=== PATIENT | female | born 1960 | race Caucasian/White ===

== ENCOUNTER 2018-10-11 13:31 | Emergency (ER) | payer BC ==
[2018-10-11 13:40] VITALS: RESP 16
--- NOTE | 2018-10-11 14:12 | ED PDOC ---
Lower Extremity Pain/Injury Time Seen by Provider: 10/11/18 13:54 Chief Complaint (Nursing): Back Pain Chief Complaint (Provider): Knee Pain History Per: Patient History/Exam Limitations: no limitations Onset/Duration Of Symptoms: Days Current Symptoms Are (Timing): Still Present Additional Complaint(s): Patient is a 57 y/o female with no significant PMHx who presents to the ED for evaluation of worsening bilateral knee pain ongoing for the past couple of weeks. Patient also complains of neck, shoulder, and back pain. Patient states she has been taking Naproxen with minimal relief. PCP: Dr. Arnaldo West Past Medical History Reviewed: Historical Data, Nursing Documentation, Vital Signs Vital Signs: Last Vital Signs Temp 97.0 F L 10/11/18 13:37 Pulse 65 10/11/18 13:37 Resp 16 10/11/18 13:37 BP 120/67 10/11/18 13:37 Pulse Ox 98 10/11/18 13:37 - Medical History PMH: No Chronic Diseases - Surgical History Surgical History: Cholecystectomy - Family History Family History: States: Unknown Family Hx - Home Medications Home Medications: Ambulatory Orders Medication Instructions Recorded Acetaminophen/Butalbital/Caf 1 tab PO Q6H #20 tab 09/04/14 [Fioricet 325 mg-50 mg-40 mg] Famotidine [Pepcid] 20 mg PO BID #28 tab 09/04/14 Oxycodone HCl/Acetaminophen 1 tab PO Q4 #10 tab 10/20/14 [Percocet 325 mg-5 mg] Diclofenac Potassium 50 mg PO BID #20 tablet 10/11/18 - Allergies Allergies/Adverse Reactions: Allergies Allergy/AdvReac Type Severity Reaction Status Date / Time No Known Allergies Allergy Verified 10/11/18 13:37 Review of Systems ROS Statement: Except As Marked, All Systems Reviewed And Found Negative Musculoskeletal: Positive for: Neck Pain, Shoulder Pain, Back Pain, Other (Bilateral Knee Pain) Physical Exam - Reviewed Nursing Documentation Reviewed: Yes Vital Signs Reviewed: Yes - Physical Exam Appears: Positive for: Non-toxic, No Acute Distress Head Exam: Positive for: ATRAUMATIC, NORMAL INSPECTION, NORMOCEPHALIC Skin: Positive for: Normal Color, Warm, Dry Eye Exam: Positive for: EOMI, Normal appearance, PERRL Neck: Positive for: Normal, Supple, Decreased ROM Cardiovascular/Chest: Positive for: Regular Rate, Rhythm. Negative for: Murmur Respiratory: Positive for: Normal Breath Sounds. Negative for: Respiratory Distress Back: Positive for: Normal Inspection Extremity: Positive for: Normal ROM, Other (Left knee has mild crepitus, nonaudible; Right knee has no crepitus). Negative for: Pedal Edema, Deformity Neurologic/Psych: Positive for: Alert, Oriented. Negative for: Motor/Sensory Deficits - ECG O2 Sat by Pulse Oximetry: 98 (RA) Pulse Ox Interpretation: Normal Medical Decision Making Medical Decision Making: Time: 1410 Impression: Bilateral Morales's Cyst Plan: - US Extremity Non Vascular COM Time: 1700 FINDINGS: No evidence of cyst or solid mass in either popliteal fossa. Bilateral popliteal veins exhibit vigorous color Doppler blood flow with normal augmentation, phasic blood flow and compressibility. IMPRESSION: Unremarkable lateral popliteal fossa. No sonographic evidence to indicate Morales cyst at either popliteal fossa. The patient is stable for discharge upon re-evaluation The patient had responses to all of her questions prior to discharge Scribe Attestation: Documented by Davion Mascorro, acting as a scribe for DANILO Benitez. Provider Scribe Attestation: All medical record entries made by the Scribe were at my direction and personally dictated by me. I have reviewed the chart and agree that the record accurately reflects my personal performance of the history, physical exam, medical decision making, and the department course for this patient. I have also personally directed, reviewed, and agree with the discharge instructions and disposition. Disposition - Clinical Impression Clinical Impression: Arthralgia, Arthralgia of both knees - Patient ED Disposition Is Patient to be Admitted: No Doctor Will See Patient In The: Office Counseled Patient/Family Regarding: Diagnosis, Need For Followup, Rx Given - Disposition Referrals: [facility] [Outside] [facility] [Outside] Disposition: Routine/Home Disposition Time: 17:38 Condition: STABLE Prescriptions: Diclofenac Potassium 50 mg PO BID #20 tablet Instructions: Chronic Knee Pain, Joint Pain, Knee Pain, Knee Pain (DC) Forms: [employer] ([place]er)
--- NOTE | 2018-10-11 17:03 | US ---
Date of service: 10/11/2018 PROCEDURE: BILATERAL LOWER EXTREMITY SOFT TISSUE ULTRASOUND HISTORY: r/o morales cysts bilateral COMPARISON: None available. TECHNIQUE: Grayscale and duplex doppler technique was applied to the popliteal fossa soft tissues bilaterally. FINDINGS: No evidence of cyst or solid mass in either popliteal fossa. Bilateral popliteal veins exhibit vigorous color Doppler blood flow with normal augmentation, phasic blood flow and compressibility. IMPRESSION: Unremarkable lateral popliteal fossa. No sonographic evidence to indicate Morales cyst at either popliteal fossa.
[2018-10-11 17:50] VITALS: BP 122/67; PULSE 62; TEMP 98.1; O2SAT 100
== END 2018-10-11 17:49 | disposition home or self-care (01) ==
LOC: H.ER 13:31
DX: M25.569 Pain in unspecified knee (principal)

== ENCOUNTER 2019-01-03 12:31 | Emergency (ER) | payer BC ==
[2019-01-03 12:42] VITALS: TEMP 98.2
--- NOTE | 2019-01-03 13:27 | ED PDOC ---
HPI: Back Time Seen by Provider: 01/03/19 12:46 Chief Complaint (Nursing): Lower Extremity Problem/Injury Chief Complaint (Provider): Lower Extremity Problem/Injury History Per: Patient History/Exam Limitations: no limitations Onset/Duration Of Symptoms: Days (x1) Current Symptoms Are (Timing): Still Present Additional Complaint(s): Patient is a 58 y/o female with no significant PMHx who presents to the ED for evaluation of right lower back pain radiating down her right leg since yesterday. Patient states she was walking when she tripped and tried not to fall but fell and landed on her right lower back. Patient reports during the time of onset she felt like her right leg fell asleep, which has now resolved. Patient took Naproxen last night with minimal relief of symptoms, thus, prompting an ED visit. Patient claims the pain is so severe she has been having difficulty sleeping and putting on her shoes. Patient denies urinary symptoms or incontinence, no bowel incontinece, no previous back injuries or problems, heavy lifting, weakness, paresthesias, fevers, or chills. PCP: Dr. Serg Calero Past Medical History Reviewed: Historical Data, Nursing Documentation, Vital Signs Vital Signs: Last Vital Signs Temp 98.2 F 01/03/19 12:38 Pulse 56 L 01/03/19 12:38 Resp 16 01/03/19 12:38 BP 117/61 01/03/19 12:38 Pulse Ox 98 01/03/19 12:38 Primary Care Provider: Serg Calero - Medical History PMH: No Chronic Diseases - Surgical History Surgical History: No Surg Hx - Family History Family History: States: Unknown Family Hx - Home Medications Home Medications: Ambulatory Orders Medication Instructions Recorded Acetaminophen/Butalbital/Caf 1 tab PO Q6H #20 tab 09/04/14 [Fioricet 325 mg-50 mg-40 mg] Famotidine [Pepcid] 20 mg PO BID #28 tab 09/04/14 Oxycodone HCl/Acetaminophen 1 tab PO Q4 #10 tab 10/20/14 [Percocet 325 mg-5 mg] Diclofenac Potassium 50 mg PO BID #20 tablet 10/11/18 Acetaminophen [8 Hour Pain Relief] 650 mg PO Q8 PRN #20 tablet.er 01/03/19 Cyclobenzaprine [Cyclobenzaprine 10 mg PO TID PRN #12 tab 01/03/19 HCl] - Allergies Allergies/Adverse Reactions: Allergies Allergy/AdvReac Type Severity Reaction Status Date / Time No Known Allergies Allergy Verified 01/03/19 12:38 Review of Systems ROS Statement: Except As Marked, All Systems Reviewed And Found Negative Genitourinary Female: Negative for: Dysuria, Frequency, Hematuria Musculoskeletal: Positive for: Back Pain (right lower), Leg Pain (right) Neurological: Negative for: Numbness Physical Exam - Reviewed Nursing Documentation Reviewed: Yes Vital Signs Reviewed: Yes - Physical Exam Comments: GENERAL APPEARANCE: Patient is awake, alert, oriented x 3, in no acute distress. SKIN: Warm, dry; (-) cyanosis. EYES: (-) conjunctival pallor. EOMI. PERRL. ENMT: Mucous membranes moist. NECK: (-) tenderness, (-) stiffness, (-) lymphadenopathy. CHEST AND RESPIRATORY: (-) rales, (-) rhonchi, (-) wheezes; breath sounds equal bilaterally. HEART AND CARDIOVASCULAR: (-) irregularity; (-) murmur, (-) gallop. ABDOMEN AND GI: Soft; (-) tenderness; (-) palpable mass. BACK: (+) right straight leg raising, (+) right lumbar and gluteal muscle tenderness, (-) midline tenderness, (-) direct bony tenderness, (-) pelvis instability, (-) deformity. EXTREMITIES: (-) deformity. Bilateral lower extremity strength: 5/5. Distal pulses good bilaterally. Capillary refill less than 2 seconds. NEURO AND PSYCH: Mental status as above. Intact sensation bilaterally; normal strength in extension of the knees, plantar and dorsiflexion of the toes. DTRs symmetric, normal steady gait - ECG O2 Sat by Pulse Oximetry: 98 (RA) Pulse Ox Interpretation: Normal Medical Decision Making Medical Decision Making: Time: 1256 Impression: Right Lower Lumbar and Right Leg Pain Plan: Lumbar Spine Complete [Rad] Decadron Inj 10 mg IM Flexeril 10 mg PO Toradol 30 mg IM Hip Right [Rad] 14:20 Date of service: 01/03/2019 PROCEDURE: Radiographs of the Lumbar Spine. HISTORY: Fall. COMPARISON: No prior. TECHNIQUE: 5 views obtained. FINDINGS: No acute compression fractures nor retropulsed fragments. BONES: No acute compression fractures no retropulsed however note is made of a pars interarticularis defect at the L5-S1 level felt to be chronic.. Vertebral bodies exhibit normal stature. Vertebral bodies and facets exhibit normal alignment DISC SPACES: Disc space heights are relatively maintained. Small marginal multilevel anterolateral osteophyte formation present with endplate eburnation.. The facets are hypertrophic at the L5-S1 through the L2-L3 levels in decreasing order of severity OTHER FINDINGS: Note made of metallic clips right upper quadrant of the abdomen consistent prior cholecystectomy IMPRESSION: There is a chronic appearing pars interarticularis defect at L5-S1 level. No acute fracture seen. Mild multilevel facet arthropathy small marginal anterolateral osteophyte formation as described. Hip Xray note reviewed by radiology yet - reviewed by me -- no acute fractures/dislocations, moderate DJD 14:55 on re eval pt resting comfortably, reports improvement of pain but not completely gone, pt neurologically intact, steady gait, improved ROM, stable for dc pt now mentions she is not supposed to take Naproxen or Motrin due to gastritis and that she took both yesterday without any relief, will give Tylenol PO Discussed results, diagnosis, treatment, return precautions and f/u with pt who is understanding, in agreement and stable for dc Scribe Attestation: Documented by Davion Mascorro, acting as a scribe Morgan Acosta PA-C. Provider Scribe Attestation: All medical record entries made by the Scribe were at my direction and personally dictated by me. I have reviewed the chart and agree that the record accurately reflects my personal performance of the history, physical exam, medical decision making, and the department course for this patient. I have also personally directed, reviewed, and agree with the discharge instructions and disposition. Disposition - Clinical Impression Clinical Impression: Fall from slip, trip, or stumble, Lumbago with sciatica, right side, Pars defect of lumbar spine - Patient ED Disposition Is Patient to be Admitted: No Counseled Patient/Family Regarding: Studies Performed, Diagnosis, Need For Followup, Rx Given - Disposition Referrals: Serg Calero [Medical Doctor] - Disposition: Routine/Home Disposition Time: 15:00 Condition: IMPROVED Additional Instructions: Thank you for letting us take care of you today. The emergency medical care you received today was directed at your acute symptoms. If you were prescribed any medication, please fill it and take as directed.Do not drink alcohol or drive when taking flexeril. It may take several days for your symptoms to resolve. Return to the Emergency Department if your symptoms worsen, do not improve, or if you have any other problems. Please contact your doctor in 2 days for re-evaluation and follow up / or call one of the physicians/clinics you have been referred to that are listed on the Patient Visit Information form that is included in your discharge packet. Bring any paperwork you were given at discharge with you along with any medications you are taking to your follow up visit. Our treatment cannot replace ongoing medical care by a primary care provider (PCP) outside of the emergency department. Geoff por dejarnos cuidar de ti hoy. La atencin mdica de emergencia que recibi hoy se dirigi a sheryl sntomas agudos. Si le recetaron algn medicamento, llnelo y tmelo segn las indicaciones. No tome alcohol ni maneje cuando tome flexeril. Los sntomas pueden tardar varios suárez en resolverse. Regrese al Departamento de Emergencias si sheryl sntomas empeoran, no mejoran o si tiene otros problemas. Comunquese con barcenas mdico dentro de 2 suárez para jocelyne nueva evaluacin y fahad un seguimiento o llame a annmarie de los mdicos / clnicas a los que rolle sido referido y que figuran en el formulario de Informacin de visita al paciente que se incluye en barcenas paquete de rasheeda. Lleve todos los documentos que recibi al momento del rasheeda junto con los medicamentos que est tomando para barcenas visita de seguimiento. Nuestro tratamiento no puede reemplazar la atencin mdica continua por parte de un proveedor de atencin primaria (PCP) fuera del departamento de emergencias. Prescriptions: Acetaminophen [8 Hour Pain Relief] 650 mg PO Q8 PRN #20 tablet.er PRN Reason: Pain, Moderate (4-7) Cyclobenzaprine [Cyclobenzaprine HCl] 10 mg PO TID PRN #12 tab PRN Reason: muscle pain Instructions: Low Back Pain in Adults, Sciatica (DC), Sciatica Exercises Forms: [facility] (Cuban), [facility] ED School/Work Excuse Print Language: MAORI - POA Present On Arrival: Falls Or Trauma
--- NOTE | 2019-01-03 13:57 | RAD ---
Date of service: 01/03/2019 PROCEDURE: Radiographs of the Lumbar Spine. HISTORY: Fall. COMPARISON: No prior. TECHNIQUE: 5 views obtained. FINDINGS: No acute compression fractures nor retropulsed fragments. BONES: No acute compression fractures no retropulsed however note is made of a pars interarticularis defect at the L5-S1 level felt to be chronic.. Vertebral bodies exhibit normal stature. Vertebral bodies and facets exhibit normal alignment DISC SPACES: Disc space heights are relatively maintained. Small marginal multilevel anterolateral osteophyte formation present with endplate eburnation.. The facets are hypertrophic at the L5-S1 through the L2-L3 levels in decreasing order of severity OTHER FINDINGS: Note made of metallic clips right upper quadrant of the abdomen consistent prior cholecystectomy IMPRESSION: There is a chronic appearing pars interarticularis defect at L5-S1 level. No acute fracture seen. Mild multilevel facet arthropathy small marginal anterolateral osteophyte formation as described.
[2019-01-03 15:25] VITALS: BP 123/66; PULSE 64; RESP 18
--- NOTE | 2019-01-03 16:24 | RAD ---
Date of service: 01/03/2019 PROCEDURE: HISTORY: fall COMPARISON: None TECHNIQUE: AP pelvis and frog's leg view. FINDINGS: Bilateral superolateral hip joint space narrowing. Trace superolateral and inferomedial acetabular spurring. No fracture or lytic lesions. No significant appearing SI or pubic symphyseal joint arthrosis. Bilateral L4-5 facet hypertrophic arthrosis. Left hemipelvic phleboliths. Moderate stool retention partially appreciated. IMPRESSION: No fracture or lytic lesion. Mild hip arthrosis. Bilateral L4-5 facet hypertrophic arthrosis. Other findings as above.
[2019-01-03 17:11] VITALS: O2SAT 98
== END 2019-01-03 15:24 | disposition home or self-care (01) ==
LOC: H.ER 12:31
DX: M54.41 Lumbago with sciatica, right side (principal)
CPT/HCPCS: 72114; 73502; 96372; 99283; J1100; J1885